=== PATIENT | male | born 1940 | race Caucasian/White ===

== ENCOUNTER 2017-05-14 01:35 | Emergency (ER) | payer MEDICARE, BC ==
[2017-05-14 01:36] VITALS: BP 115/66
--- NOTE | 2017-05-14 01:48 | PHYS DOC ---
Past History Past Medical History: A-Fib, CAD, CVA, High Cholesterol, Heart Disease, Hypertension Smoking: Cigarettes, Less than 1pk/day Adult General Chief Complaint Chief Complaint: right knee injury HPI HPI he is a pleasant 76-year-old male who was standing outside today while smoking when he lost his footing well defined chopping wood at 1 AM this morning when he slipped and skin is right knee. He is in independent living and he denies hitting his head, suffering any neck pain, hip pain, actual knee pain, numbness and tingling to his legs or back the nursing staff insisted he be evaluated for his knee injury. At this point patient has no complaints, no active bleeding, he only has a small abrasion to the lateral aspect of his right knee with no changes in range of motion or walking or popping. No other complaint of chest pain, abdominal pain or other issues. Patient actually did not want to come to the hospital has no complaints Review of Systems Review of Systems C chest: The chest pain Abdomen: Patient denies any abdominal pain vomiting or diarrhea Musculoskeletal: Denies back pain or joint pain [] Integument: Denies rash or skin lesions [] Neurologic: Denies headache, focal weakness or sensory changes [] All other systems were reviewed and found to be within normal limits, except as documented in this note. Physical Exam Physical Exam Vital signs on the chart noted to be hypertensive only. Constitutional: Well developed, well nourished, no acute distress, non-toxic appearance. [] HENT: Normocephalic, atraumatic, oropharynx moist, no oral lesions[] Neck: Normal range of motion, no tenderness, supple, no stridor. [] Cardiovascular: Regular irregular rhythm no murmurs gallops or rubs[] Lungs & Thorax: Bilateral breath sounds clear to auscultation [] Abdomen: Bowel sounds normal, soft, no tenderness, ] Skin: Warm, dry, no erythema, no rash. All abrasion measuring 2 cm x 1 segment on the lateral aspect of the right knee.[] Back: No tenderness, ] Extremities: No tenderness, no cyanosis, no clubbing, ROM intact, no edema. full range of motion of the right knee without locking or popping or obvious deformity. he has no pain[] Neurologic: Alert and oriented X 3, normal motor function, normal sensory function, no focal deficits noted. [] Psychologic: Affect normal, judgement normal, mood normal. [] EKG EKG [] Radiology/Procedures Radiology/Procedures [] Course & Med Decision Making Course & Med Decision Making Pertinent Labs and Imaging studies reviewed. (See chart for details) [] Dragon Disclaimer Dragon Disclaimer This electronic medical record was generated, in whole or in part, using a voice recognition dictation system. Departure Departure: Impression: Primary Impression: Fall from standing Additional Impression: Knee abrasion Disposition: HOME, SELF-CARE Condition: STABLE Patient Instructions: Abrasions, Fall Prevention and Home Safety Additional Instructions: discharge: I've spoken with the patient and/or caregivers. I've explained the patient's condition, diagnosis and treatment plan based on information available to me at this time. I've answered the patient's and/or caregivers questions and addressed any concerns. The patient and/or caregivers have a good understanding the patient's diagnosis, condition and treatment plan as can be expected at this point. Vital signs have been stabilized. The patient's condition is stable for discharge from the emergency department. The patient will pursue further outpatient evaluation with her primary care provider or other designated consulting physician as outlined in the discharge instructions. Patient and/or caregivers are agreeable to this plan of care and follow-up instructions have been explained in detail. The patient and/or caregivers have received these instructions in written format and expressed understanding of these discharge instructions. The patient and her caregivers are aware that if any significant change in condition or worsening of symptoms should prompt him to immediately return to this of the closest emergency department. If an emergent department is not readily available I would encourage him to call 911. Problem Qualifiers CECILIA PALMER MD May 14, 2017 01:48
== END 2017-05-14 01:59 | disposition home or self-care (01) ==
LOC: ER 01:35
DX: S80.211A Abrasion, right knee, initial encounter (principal); I11.9 Hypertensive heart disease without heart failure; E78.00 Pure hypercholesterolemia, unspecified; I25.10 Atherosclerotic heart disease of native coronary artery without angina pectoris; F17.210 Nicotine dependence, cigarettes, uncomplicated; I48.91 Unspecified atrial fibrillation; Z86.73 Personal history of transient ischemic attack (TIA), and cerebral infarction without residual deficits; W01.198A Fall on same level from slipping, tripping and stumbling with subsequent striking against other object, initial encounter; Y93.89 Activity, other specified; Y99.8 Other external cause status; Y92.89 Other specified places as the place of occurrence of the external cause
CPT/HCPCS: 99284

== ENCOUNTER → 2019-10-11 | Emergency (ER) | payer MEDICARE, BC ==
[~2019-10-11] VITALS: Ht 172.7 cm; Wt 71.8 kg
--- NOTE | 2019-10-11 20:00 | PHYS DOC ---
Past History Past Medical History: A-Fib, CAD, CVA, High Cholesterol, Heart Disease, Hypertension Past Surgical History: No Surgical History Smoking: Cigarettes, Less than 1pk/day Alcohol Use: None Drug Use: None General Adult EDM: Chief Complaint: NEURO SYMPTOMS/DEFICITS HPI: HPI: Patient is a 78 y/o male who presents for evaluation of possible strokelike symptoms. Patient currently lives at [facility]. Patient has a history of prior stroke and has a left arm chronic deficit. They report that about 1910 PM patient started leaning to the left and having some decreased mentation. Symptoms had begun to improve prior to arrival. Patient has significant generalized weakness. Patient's speech was clear on arrival and his GCS was 15. His prior stroke was 2 years ago. Patient is a DNR. Patient has had multiple similar episodes in the past. There is no reported injury, fall or trauma. Blood sugar is stable Review of Systems: Review of Systems: Constitutional: Denies fever or chills Eyes: Denies change in visual acuity HENT: Denies nasal congestion or sore throat Respiratory: Denies cough or shortness of breath Cardiovascular: Denies chest pain or edema GI: Denies abdominal pain, nausea, vomiting, bloody stools or diarrhea : Denies dysuria Musculoskeletal: Denies back pain or joint pain Integument: Denies rash Neurologic: Denies headache, has chronic left arm weakness or sensory changes Endocrine: Denies polyuria or polydipsia Lymphatic: Denies swollen glands Psychiatric: Denies depression or anxiety Heart Score: HEART Score for Chest Pain: HEART Score for Chest Pain Response (Comments) Value History Slighlty/Non-Suspicious 0 ECG Normal 0 Age > 65 2 Risk Factors 1 or 2 Risk Factors 1 Troponin < Normal Limit 0 Total 3 Risk Factors: Risk Factors: DM, Current or recent (<one month) smoker, HTN, HLP, family history of CAD, obesity. Risk Scores: Score 0 - 3: 2.5% MACE over next 6 weeks - Discharge Home Score 4 - 6: 20.3% MACE over next 6 weeks - Admit for Clinical Observation Score 7 - 10: 72.7% MACE over next 6 weeks - Early Invasive Strategies Allergies: Allergies: Allergies Coded Allergies Type Severity Reaction Last Updated Verified No Known Drug Allergies 05/14/17 No Physical Exam: PE: Constitutional: Well developed, well nourished, mild distress, non-toxic appearance. [] HENT: Normocephalic, atraumatic, bilateral external ears normal, oropharynx moist, no oral exudates, nose normal. [] Eyes: PERRL, EOMI, conjunctiva normal, no discharge. [] Neck: Normal range of motion, no tenderness, supple, no stridor. [] Cardiovascular:Heart rate regular rhythm, no murmur [] Lungs & Thorax: Bilateral breath sounds clear to auscultation [] Abdomen: Bowel sounds normal, soft, no tenderness, no masses, no pulsatile masses. [] Skin: Warm, dry, no erythema, no rash. [] Back: No tenderness, no CVA tenderness. [] Extremities: No tenderness, no cyanosis, no clubbing, ROM intact, no edema. [] Neurologic: Alert and oriented X person and place and month, not president, slight facial droop noted. Patient has obvious weakness left arm but does have good manager books slightly diminished when compared to right side. There is some drift present. Patient has some lack of movement in coordination with his left leg as well. [] Psychologic: Affect normal, judgement normal, mood normal. [] EKG: EKG: EKG, rate 72, slight leftward axis, otherwise essentially normal EKG, not STEMI read at 2206 Radiology/Procedures: Radiology/Procedures: Ct Head: Radiologist called and there is no acute findings. Patient has lacunar infarcts read at [address] [place] [address] IMAGING REPORT Signed PATIENT: LUPE WATTS ACCOUNT: [id number] : 1940 LOCATION: ER AGE: 78 SEX: M EXAM STATUS: REG ER ORD. PHYSICIAN: RODERICK DIETZ DO REASON: CODE STROKE PROCEDURE: CT CODE STROKE HEAD WO Exam: CT head INDICATION: Code stroke TECHNIQUE: Sequential axial images through the head were obtained without the administration of IV contrast. Comparisons: 10/21/2016 FINDINGS: No focal parenchymal lesion or hemorrhage is identified. There is no midline shift or sulcal effacement. Chronic bilateral lacunar infarcts are noted. Patchy hypodensity in the periventricular white matter representing small vessel ischemic change. No acute vascular territory infarction is identified. Mars-white distinction is preserved. The ventricular system is within normal limits without compression hydrocephalus. The basal cisterns are well maintained. The visualized portions of the paranasal sinuses and mastoid air cells are well-pneumatized. No acute fractures. IMPRESSION: Chronic ischemic change without acute intracranial abnormality. Exposure: One or more of the following in the visualized dose reduction techniques were utilized for this examination: 1. Automated exposure control 2. Adjustment of the MA and/or KV according to patient size Use of iterative of reconstructive technique FOR INTERNAL CODING PURPOSES Critical result: Findings discussed with RODERICK DIETZ at 10/11/2019 8:07 PM. RESULT CODE: (C) Electronically signed by: Keesha Peraza MD (10/11/2019 8:09 PM) [id number] DICTATED AND SIGNED BY: KEESHA PERAZA MD DATE: 10/11/192008 CC: RODERICK DIETZ DO; MARLENY HAMILTON DO ~ [place] [address] IMAGING REPORT Signed PATIENT: LUPE WATTS ACCOUNT: [id number] : 1940 LOCATION: ER AGE: 78 SEX: M EXAM STATUS: REG ER ORD. PHYSICIAN: RODERICK DIETZ DO REASON: short of air, confusion PROCEDURE: CHEST AP ONLY Exam: Chest one view INDICATION: Short of air, confusion TECHNIQUE: Frontal view of the chest Comparisons: None FINDINGS: The cardiomediastinal silhouette and pulmonary vessels are within normal limits. The lung and pleural spaces are clear. IMPRESSION: No acute cardiopulmonary process. Electronically signed by: Keesha Peraza MD (10/11/2019 9:30 PM) [id number] DICTATED AND SIGNED BY: KEESHA PERAZA MD DATE: 10/11/192129 CC: RODERICK DIETZ DO; MARLENY HAMILTON DO ~ Course & Med Decision Making: Course & Med Decision Making Pertinent Labs and Imaging studies reviewed. (See chart for details) 2109 CBC today shows a low hemoglobin of 10.5. BUN 29 creatinine 1.7 remainder of labs unremarkable. Troponin was added. Patient alert awake and baseline appropriate. Patient's daughters x2 are here. We discussed options and likely admission. Their preference is to be transferred to [facility]. No indication or need for TPA at this time. Patient back to his baseline status. Awaiting chest x-ray before disposition decision 2214 stable, remainder of ED work-up obtained. Patient medically stable. Blood pressure elevated 170s systolic. He does not have any changes in his neurological status. Will contact hospitalist at [facility] as requested to see about transfer. Dr. Theodore called right back and accepted patient. Dragon Disclaimer: Dragon Disclaimer: This electronic medical record was generated, in whole or in part, using a voice recognition dictation system. Departure Departure: Impression: Primary Impression: TIA (transient ischemic attack) Additional Impressions: Elevated blood pressure reading Left arm weakness History of CVA (cerebrovascular accident) Disposition: 05 TRANSFER OTHER ([facility] under care of Dr. Theodore) Condition: STABLE Referrals: MARLENY HAMILTON DO (PCP) NIH Stroke Scale: NIH Stroke Scale Response (Comments) Value Level of Consciousness: 0 Alert/Responsive 0 LOC Questions: 0 Answers both correctly 0 LOC Commands: 0 Performs both tasks 0 Best Gaze: 0 Normal 0 Visual: 0 No visual loss 0 Facial Palsy: 1 Minor paralysis 1 Motor - Left Arm 1 Drifts, but can hold 1 Motor - Right Arm 0 No drift 0 Motor - Left Leg 1 Drift but can hold 1 Motor: Right Leg 0 No drift 0 Limb Ataxia: 0 Absent 0 Sensory: 0 No loss 0 Best Language: 0 Normal 0 Dysathria: 0 Normal 0 Extinction and Inattention: 0 Normal 0 Total 3 ROEDRICK DIETZ DO Oct 11, 2019 20:00
--- NOTE | 2019-10-11 20:13 | RAD ---
Exam: CT head INDICATION: Code stroke TECHNIQUE: Sequential axial images through the head were obtained without the administration of IV contrast. Comparisons: 10/21/2016 FINDINGS: No focal parenchymal lesion or hemorrhage is identified. There is no midline shift or sulcal effacement. Chronic bilateral lacunar infarcts are noted. Patchy hypodensity in the periventricular white matter representing small vessel ischemic change. No acute vascular territory infarction is identified. Mars-white distinction is preserved. The ventricular system is within normal limits without compression hydrocephalus. The basal cisterns are well maintained. The visualized portions of the paranasal sinuses and mastoid air cells are well-pneumatized. No acute fractures. IMPRESSION: Chronic ischemic change without acute intracranial abnormality. Exposure: One or more of the following in the visualized dose reduction techniques were utilized for this examination: 1. Automated exposure control 2. Adjustment of the MA and/or KV according to patient size Use of iterative of reconstructive technique FOR INTERNAL CODING PURPOSES Critical result: Findings discussed with RODERICK DIETZ at 10/11/2019 8:07 PM. RESULT CODE: (C) Electronically signed by: Keesha Betts MD (10/11/2019 8:09 PM) [id number]
[2019-10-11 20:51] LABS: BASO % 0 % (0-3); EOS # 0.2 x10^3/uL (0.0-0.7); EOS % 2 % (0-3); HEMATOCRIT 33.2 % (39.0-53.0); HEMOGLOBIN 10.5 g/dL (13.0-17.5); LYMPH # 0.6 x10^3/uL (1.0-4.8); LYMPH % 5 % (24-48); MEAN CORPUSCULAR HEMOGLOBIN 26 pg (25-35); MEAN CORPUSCULAR HGB CONC 32 g/dL (31-37); MEAN CORPUSCULAR VOLUME 83 fL (79-100); MONO # 1.2 x10^3/uL (0.0-1.1); MONO % 11 % (0-9); NEUT # 8.8 x10^3uL (1.8-7.7); NEUT % 81 % (31-73); PLATELET COUNT 184 x10^3/uL (140-400); RED CELL DISTRIBUTION WIDTH 17.3 % (11.5-14.5); WHITE BLOOD COUNT 10.8 x10^3/uL (4.0-11.0)
[2019-10-11 20:55] LABS: CREATININE 1.7 mg/dL (0.7-1.3); GFR 39.1; POTASSIUM 3.9 mmol/L (3.5-5.1)
[2019-10-11 21:01] LABS: ALBUMIN 3.3 g/dL (3.4-5.0); ALBUMIN/GLOBULIN RATIO 0.9 (1.0-1.7); TOTAL BILIRUBIN 0.2 mg/dL (0.2-1.0); TOTAL PROTEIN 7.1 g/dL (6.4-8.2)
--- NOTE | 2019-10-11 21:33 | RAD ---
Exam: Chest one view INDICATION: Short of air, confusion TECHNIQUE: Frontal view of the chest Comparisons: None FINDINGS: The cardiomediastinal silhouette and pulmonary vessels are within normal limits. The lung and pleural spaces are clear. IMPRESSION: No acute cardiopulmonary process. Electronically signed by: Keesha Betts MD (10/11/2019 9:30 PM) [id number]
--- NOTE | 2019-10-11 22:54 | EKG ---
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
[2019-10-12 00:25] VITALS: BP 135/72
== END | disposition short-term general hospital (02) ==
LOC: ER 19:50
DX: G45.9 Transient cerebral ischemic attack, unspecified (principal); R03.0 Elevated blood-pressure reading, without diagnosis of hypertension; I48.91 Unspecified atrial fibrillation; I25.10 Atherosclerotic heart disease of native coronary artery without angina pectoris; E78.00 Pure hypercholesterolemia, unspecified; I11.0 Hypertensive heart disease with heart failure; F17.210 Nicotine dependence, cigarettes, uncomplicated; Z86.73 Personal history of transient ischemic attack (TIA), and cerebral infarction without residual deficits
CPT/HCPCS: 36415; 70450; 71045; 80053; 82947; 84484; 85025; 85610; 93005; 99285

== ENCOUNTER 2020-01-26 18:38 | Emergency (ER) | payer MEDICARE, BC ==
[~2020-01-26] VITALS: Ht 172.7 cm; Wt 71.8 kg
--- NOTE | 2020-01-26 19:16 | PHYS DOC ---
Past History Past Medical History: A-Fib, CAD, CVA, High Cholesterol, Heart Disease, Hypertension Past Surgical History: No Surgical History Smoking: Cigarettes, Less than 1pk/day Alcohol Use: None Drug Use: None Adult General Chief Complaint Chief Complaint: WEAKNESS/GENERALIZED HPI HPI Patient is a 79-year-old male who presents from [facility] for fatigue. EMS was called by [facility] staff due to concern that patient was more fatigued than usual. Patient admits to fatigue; however, denied any other symptoms. EMS ultimately transported hemodynamically stable patient to our ER for further evaluation. On arrival, patient admits fatigue but denies any other symptoms. Denies any recent febrile illness, URI, COVID-19 contact, chest pain, shortness of breath, abdominal pain, UTI-like symptoms, or recent blood loss. Review of Systems Review of Systems Fourteen body systems of review of systems have been reviewed. See HPI for pertinent positives and negative responses, other trejo all other systems are n egative, non-pertinent or non-contributory Allergies Allergies Allergies Coded Allergies Type Severity Reaction Last Updated Verified No Known Drug Allergies 05/14/17 No Physical Exam Physical Exam Constitutional: Well developed, well nourished, no acute distress, non-toxic appearance. No signs of trauma HENT: Normocephalic, atraumatic, bilateral external ears normal, oropharynx moist, no oral exudates, nose normal. Eyes: PERRLA, EOMI, conjunctiva normal, no discharge. Neck: Normal range of motion, no tenderness, supple, no stridor. Cardiovascular: Heart rate regular, sinus rhythm, no murmurs rubs or gallops Lungs & Thorax: Bilateral breath sounds clear to auscultation Abdomen: Bowel sounds normal, soft, no tenderness, no masses, no pulsatile masses. Nonsurgical abdomen, no peritoneal signs Skin: Warm, dry, no erythema, no rash. Back: No tenderness, no CVA tenderness. Extremities: No tenderness, no cyanosis, no clubbing, ROM intact, no edema. Neurologic: Alert and oriented X 3, normal motor & sensory function, no focal deficits noted. Cranial nerves II through XII intact Psychologic: Flat affect, judgement normal, depressed mood Current Patient Data Vital Signs Vital Signs Date Time Temp Pulse Resp B/P (MAP) Pulse Ox O2 Delivery O2 Flow Rate FiO2 8/13/20 18:52 98.4 72 18 138/63 (88) 97 Room Air Lab Results Laboratory Tests Test 01/26/20 19:04 01/26/20 21:10 White Blood Count 6.0 x10^3/uL Red Blood Count 3.74 x10^6/uL Hemoglobin 9.8 g/dL Hematocrit 31.1 % Mean Corpuscular Volume 83 fL Mean Corpuscular Hemoglobin 26 pg Mean Corpuscular Hemoglobin Concent 31 g/dL Red Cell Distribution Width 16.1 % Platelet Count 181 x10^3/uL Neutrophils (%) (Auto) 76 % Lymphocytes (%) (Auto) 7 % Monocytes (%) (Auto) 13 % Eosinophils (%) (Auto) 4 % Basophils (%) (Auto) 1 % Neutrophils # (Auto) 4.6 x10^3uL Lymphocytes # (Auto) 0.4 x10^3/uL Monocytes # (Auto) 0.8 x10^3/uL Eosinophils # (Auto) 0.2 x10^3/uL Basophils # (Auto) 0.0 x10^3/uL Sodium Level 143 mmol/L Potassium Level 4.2 mmol/L Chloride Level 104 mmol/L Carbon Dioxide Level 27 mmol/L Anion Gap 12 Blood Urea Nitrogen 34 mg/dL Creatinine 2.0 mg/dL Estimated GFR (Cockcroft-Gault) 32.3 BUN/Creatinine Ratio 17 Glucose Level 120 mg/dL Calcium Level 9.0 mg/dL Magnesium Level 2.2 mg/dL Total Bilirubin 0.2 mg/dL Aspartate Amino Transf (AST/SGOT) 13 U/L Alanine Aminotransferase (ALT/SGPT) 12 U/L Alkaline Phosphatase 87 U/L Creatine Kinase 30 U/L Troponin I Quantitative < 0.017 ng/mL [id number] Natriuretic Peptide 357 pg/mL Total Protein 6.9 g/dL Albumin 3.5 g/dL Albumin/Globulin Ratio 1.0 Urine Collection Type Unknown Urine Color Yellow Urine Clarity Clear Urine pH 5.5 Urine Specific [place] 1.020 Urine Protein 30 mg/dl Urine Glucose (UA) Neg mg/dL Urine Ketones (Stick) Neg mg/dL Urine Blood Neg Urine Nitrite Neg Urine Bilirubin Neg Urine Urobilinogen Dipstick 0.2 mg/dL Urine Leukocyte Esterase Neg Urine RBC Occ /HPF Urine WBC 1-4 /HPF Urine Squamous Epithelial Cells Few /LPF Urine Bacteria 0 /HPF Urine Hyaline Casts Occ /HPF Urine Mucus Slight /LPF Current Medications Medications (Trade) Dose Ordered Sig/Andrea Route PRN Reason Start Time Stop Time Status Last Admin Dose Admin Sodium Chloride 500 ml @ 0 mls/hr 1X ONCE IV 01/26/20 20:15 01/26/20 20:16 DC 01/26/20 20:19 Sodium Chloride 500 ml @ As Directed STK-MED ONCE .ROUTE 01/26/20 20:16 01/26/20 20:16 DC EKG EKG EKG ordered and interpreted by myself at 1912 hrs. as normal sinus rhythm at 71 bpm, unremarkable intervals, no axis deviation, no ischemic findings, no STEMI Radiology/Procedures Radiology/Procedures PROCEDURE: PORTABLE CHEST 1V EXAM: AP View of the chest DATE: 01/26/2020 6:57 PM INDICATION: Weakness COMPARISON: No Prior FINDINGS: The heart is not enlarged. Mediastinal and hilar contours are normal. No focal parenchymal airspace opacity. Background of emphysematous change. No pleural effusion or pneumothorax. IMPRESSION: 1. No radiographic evidence for acute cardiopulmonary process. Electronically signed by: Kannan Clemente MD (01/26/2020 7:29 PM) [facility] Course & Med Decision Making Course & Med Decision Making Patient seen on immediate EMS arrival Airway patent, breathing unlabored, vitals obtained and grossly unremarkable. IV access obtained Comprehensive history and physical exam obtained, pertinent laboratory and imaging studies ordered thereafter Patient gently fluid resuscitated with IV saline Patient remained asymptomatic throughout entirety of the ED stay, he was reassessed several times by various members of our healthcare team ED course discussed in full with patient. Patient remained fatigued but without any obvious or emergent causes. Discussed potential of normocytic anemia playing into patient's fatigue. Also discussed his depression is a possibility. Patient unsure if he has had vitamin D levels checked in the outpatient setting Ultimately, discussed little indication for further diagnostic work-up or admission to the hospital. Patient was agreeable to discharge back home in stable condition with close outpatient follow-up Strict return precautions were discussed at length with good understanding, all questions and concerns addressed Patient was discharged home with his daughter who would be transporting patient back to [facility] Dragmauro Disclaimer Dragon Disclaimer This electronic medical record was generated, in whole or in part, using a voice recognition dictation system. Departure Departure: Impression: Primary Impression: Fatigue Additional Impressions: Normocytic anemia Chronic renal disease Disposition: HOME/RESIDENCE PRIOR TO ADM Condition: STABLE Referrals: MARLENY HAMILTON DO (PCP) Patient Instructions: Anemia, Nonspecific-Brief, Fatigue Additional Instructions: As discussed prior to your ER departure, there is no emergent causes for your presenting symptoms today It appears you have a chronic normocytic anemia and chronic renal disease I advised you to follow-up with your primary care physician to discuss further work-up of these issues in outpatient setting as they might be contributory to your fatigue I also recommend to her PCP investigate other underlying reasons for your fatigue such as but not limited to vitamin D deficiency and depression Thank you for suggesting [facility] for your care, please do not hesitate to call if you have any further questions or concerns regarding your care today Justification of Admission: Justification of Admission: Justification of Admission Dx: N/A Problem Qualifiers MAURO RIZZO DO Jan 26, 2020 19:16
[2020-01-26 19:26] LABS: BASO % 1 % (0-3); EOS # 0.2 x10^3/uL (0.0-0.7); EOS % 4 % (0-3); HEMATOCRIT 31.1 % (39.0-53.0); HEMOGLOBIN 9.8 g/dL (13.0-17.5); LYMPH # 0.4 x10^3/uL (1.0-4.8); LYMPH % 7 % (24-48); MEAN CORPUSCULAR HEMOGLOBIN 26 pg (25-35); MEAN CORPUSCULAR HGB CONC 31 g/dL (31-37); MEAN CORPUSCULAR VOLUME 83 fL (79-100); MONO # 0.8 x10^3/uL (0.0-1.1); MONO % 13 % (0-9); NEUT # 4.6 x10^3uL (1.8-7.7); NEUT % 76 % (31-73); PLATELET COUNT 181 x10^3/uL (140-400); RED BLOOD COUNT 3.74 x10^6/uL (4.30-5.70); RED CELL DISTRIBUTION WIDTH 16.1 % (11.5-14.5)
--- NOTE | 2020-01-26 19:31 | RAD ---
EXAM: AP View of the chest DATE: 01/26/2020 6:57 PM INDICATION: Weakness COMPARISON: No Prior FINDINGS: The heart is not enlarged. Mediastinal and hilar contours are normal. No focal parenchymal airspace opacity. Background of emphysematous change. No pleural effusion or pneumothorax. IMPRESSION: 1. No radiographic evidence for acute cardiopulmonary process. Electronically signed by: Kannan Clemente MD (01/26/2020 7:29 PM) [facility]AN
[2020-01-26 19:42] LABS: MAGNESIUM 2.2 mg/dL (1.8-2.4)
[2020-01-26 19:50] VITALS: BP 157/84
[2020-01-26 19:51] LABS: GFR 32.3; POTASSIUM 4.2 mmol/L (3.5-5.1)
[2020-01-26 19:56] LABS: ALBUMIN 3.5 g/dL (3.4-5.0); TOTAL BILIRUBIN 0.2 mg/dL (0.2-1.0); TOTAL PROTEIN 6.9 g/dL (6.4-8.2)
[2020-01-26] MEDS ORDERED: IV NORMAL SALINE 500ML 500 ML IV ONE (20:15)
[2020-01-26] MEDS ORDERED: IV NORMAL SALINE 500ML 500 ML ONE (20:16)
[2020-01-26 21:31] LABS: BACTERIA,URINE 0 /HPF (0-FEW); BILIRUBIN,URINE NEG (NEG); CLARITY,URINE CLEAR; COLOR,URINE YELLOW; GLUCOSE,URINE NEG (NEG); HYALINE CASTS, URINE OCC /HPF; NITRITE,URINE NEG (NEG); RBC,URINE OCC /HPF (0-2); SQUAMOUS EPITHELIAL CELL,UR FEW /LPF; UROBILINOGEN,URINE 0.2 mg/dL (0.2 mg/dL)
--- NOTE | 2020-01-27 06:28 | EKG ---
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
== END 2020-01-26 22:42 | disposition home or self-care (01) ==
LOC: ER 18:38
DX: R53.83 Other fatigue (principal); D64.9 Anemia, unspecified; I13.10 Hypertensive heart and chronic kidney disease without heart failure, with stage 1 through stage 4 chronic kidney disease, or unspecified chronic kidney disease; N18.9 Chronic kidney disease, unspecified; I48.91 Unspecified atrial fibrillation; I25.10 Atherosclerotic heart disease of native coronary artery without angina pectoris; E78.00 Pure hypercholesterolemia, unspecified; F17.210 Nicotine dependence, cigarettes, uncomplicated; Z86.73 Personal history of transient ischemic attack (TIA), and cerebral infarction without residual deficits
CPT/HCPCS: 36415; 71045; 80053; 81001; 82550; 83735; 83880; 84484; 85025; 93005; 96360; 99285; J7040

== ENCOUNTER 2020-03-11 09:18 | Emergency (ER) | payer MEDICARE, BC ==
[~2020-03-11] VITALS: Ht 172.7 cm; Wt 71.8 kg
--- NOTE | 2020-03-11 09:34 | PHYS DOC ---
Past History Past Medical History: A-Fib, CAD, CVA, High Cholesterol, Heart Disease, Hypertension Past Surgical History: No Surgical History Smoking: Cigarettes, Less than 1pk/day Alcohol Use: None Drug Use: None General Adult EDM: Chief Complaint: FATIGUE HPI: HPI: Patient is a 79-year-old male who arrives via EMS with a chief complaint of generalized weakness and confusion and fatigue for last 2 days. Patient lives at assisted living he denies any pain at this time because of the assisted living feels that he is at low oxygen levels and generalized weakness and fatigue over last couple days. History, physical, review of systems are limited due to altered mental status Review of Systems: Review of Systems: Constitutional: Denies fever or chills Eyes: Denies change in visual acuity HENT: Denies nasal congestion or sore throat Respiratory: Denies shortness of breath Cardiovascular: Denies chest pain or edema GI: Denies abdominal pain, nausea, vomiting, bloody stools or diarrhea : Denies dysuria Musculoskeletal: Denies back pain or joint pain Integument: Denies rash Neurologic: Denies headache, focal weakness or sensory changes Endocrine: Denies polyuria or polydipsia Lymphatic: Denies swollen glands Psychiatric: Denies depression or anxiety Heart Score: Risk Factors: Risk Factors: DM, Current or recent (<one month) smoker, HTN, HLP, family history of CAD, obesity. Risk Scores: Score 0 - 3: 2.5% MACE over next 6 weeks - Discharge Home Score 4 - 6: 20.3% MACE over next 6 weeks - Admit for Clinical Observation Score 7 - 10: 72.7% MACE over next 6 weeks - Early Invasive Strategies Allergies: Allergies: Allergies Coded Allergies Type Severity Reaction Last Updated Verified No Known Drug Allergies 05/14/17 No Physical Exam: PE: Constitutional: Well developed, well nourished, no acute distress, non-toxic appearance. [] HENT: Normocephalic, atraumatic, bilateral external ears normal, no trismus, nose normal. [] Eyes: PERRLA, EOMI, conjunctiva normal, no discharge. [] Neck: Normal range of motion, no tenderness, supple, no stridor. [] Cardiovascular:Heart rate regular rhythm, peripheral pulses are intact, cap refill is brisk Lungs & Thorax: Bilateral breath sounds clear, no respiratory distress Abdomen: Bowel sounds normal, soft, no tenderness, no masses, no pulsatile masses. [] Skin: Warm, dry, no erythema, no rash. [] Back: No tenderness, no CVA tenderness. [] Extremities: No tenderness, no cyanosis, no clubbing, ROM intact, no edema. [] Neurologic: Alert but confused to place and time, generalized weakness, no lateralizing deficits Psychologic: Affect normal, judgement normal, mood normal. [] Current Patient Data: Labs: Laboratory Tests Test 03/11/20 09:46 03/11/20 09:49 White Blood Count 13.1 x10^3/uL Red Blood Count 3.37 x10^6/uL Hemoglobin 8.4 g/dL Hematocrit 27.5 % Mean Corpuscular Volume 82 fL Mean Corpuscular Hemoglobin 25 pg Mean Corpuscular Hemoglobin Concent 31 g/dL Red Cell Distribution Width 16.6 % Platelet Count 196 x10^3/uL Neutrophils (%) (Auto) 85 % Lymphocytes (%) (Auto) 4 % Monocytes (%) (Auto) 11 % Eosinophils (%) (Auto) 0 % Basophils (%) (Auto) 0 % Neutrophils # (Auto) 11.1 x10^3uL Lymphocytes # (Auto) 0.5 x10^3/uL Monocytes # (Auto) 1.4 x10^3/uL Eosinophils # (Auto) 0.1 x10^3/uL Basophils # (Auto) 0.0 x10^3/uL Sodium Level 144 mmol/L Potassium Level 4.3 mmol/L Chloride Level 105 mmol/L Carbon Dioxide Level 29 mmol/L Anion Gap 10 Blood Urea Nitrogen 44 mg/dL Creatinine 2.2 mg/dL Estimated GFR (Cockcroft-Gault) 28.9 BUN/Creatinine Ratio 20 Glucose Level 111 mg/dL Lactic Acid Level 1.7 mmol/L Calcium Level 9.3 mg/dL Total Bilirubin 0.4 mg/dL Aspartate Amino Transf (AST/SGOT) 16 U/L Alanine Aminotransferase (ALT/SGPT) 16 U/L Alkaline Phosphatase 79 U/L Ammonia < 10 mcmol/L Troponin I Quantitative 1.622 ng/mL WL-Fnf-U-Type Natriuretic Peptide 1105 pg/mL Total Protein 7.0 g/dL Albumin 3.0 g/dL Albumin/Globulin Ratio 0.8 Urine Collection Type U cath Urine Color Yellow Urine Clarity Hazy Urine pH 7.0 Urine Specific [place] 1.020 Urine Protein 30 mg/dl Urine Glucose (UA) Neg mg/dL Urine Ketones (Stick) Neg mg/dL Urine Blood Neg Urine Nitrite Neg Urine Bilirubin Neg Urine Urobilinogen Dipstick 0.2 mg/dL Urine Leukocyte Esterase Neg Urine RBC 6-10 /HPF Urine WBC Occ /HPF Urine Squamous Epithelial Cells Occ /LPF Urine Bacteria 0 /HPF Urine Hyaline Casts Occ /HPF Urine Mucus Slight /LPF Current Medications Medications (Trade) Dose Ordered Sig/Andrea Route PRN Reason Start Time Stop Time Status Last Admin Dose Admin Sodium Chloride 1,000 ml @ 1,000 mls/hr 1X ONCE IV 03/11/20 10:00 03/11/20 10:59 DC 03/11/20 10:07 Aspirin (Aspirin Chewable) 324 mg 1X ONCE PO 03/11/20 11:00 03/11/20 11:04 DC 03/11/20 10:57 EKG: EKG: [] EKG interpreted by me, normal sinus rhythm with rate 82 normal axis normal intervals nonspecific ST changes Radiology/Procedures: Radiology/Procedures: [][place] [address] IMAGING REPORT Signed PATIENT: LUPE WATTS ACCOUNT: [id number] : 1940 LOCATION: ER AGE: 79 SEX: M EXAM STATUS: REG ER ORD. PHYSICIAN: ISABELLA ARRIAGA MD REASON: ams PROCEDURE: PORTABLE CHEST 1V AP portable chest 03/11/2020. Reason for exam: Mental status change. Comparison is made with a study of 01/26/2020. Depth of inspiration is shallower. This may account for some increased basilar markings. There is no consolidation or pleural fluid. There is suggestion of a vague nodular opacity in the upper right lung. This had a similar appearance previously, although seems less evident on the older film of 10/11/2019. IMPRESSION: Mild by basilar atelectasis. Possible right lung nodule. Electronically signed by: Elaina Aguirre Jr., MD (03/11/2020 10:17 AM) [facility] DICTATED AND SIGNED BY: ELAINA AGUIRRE Jr, MD DATE: 03/11/20 1017 CC: ISABELLA ARRIAGA MD; MARLENY HAMILTON DO ~ Course & Med Decision Making: Course & Med Decision Making Pertinent Labs and Imaging studies reviewed. (See chart for details) [] 79-year-old male presents with weakness over the last 2 days. Patient has elevated troponin and has been weak over the last 2 days I feel like he may have had a N STEMI on Thursday. Patient also has a renal insufficiency is given some IV fluids. Patient will be admitted to [facility]. Discussed the case with who will accept. Dragon Disclaimer: Dragon Disclaimer: This electronic medical record was generated, in whole or in part, using a voice recognition dictation system. Departure Departure: Impression: Primary Impression: NSTEMI (non-ST elevated myocardial infarction) Additional Impressions: Generalized weakness COSMO (acute kidney injury) Disposition: 01 HOME/RESIDENCE PRIOR TO ADM Condition: GUARDED Referrals: MARLENY HAMILTON DO (PCP) Justification of Admission: Justification of Admission: Justification of Admission Dx: N/A ISABELLA ARRIAGA MD Mar 11, 2020 09:34
[2020-03-11] MEDS ORDERED: IV NORMAL SALINE 1,000ML 1,000 ML IV ONE (10:00)
[2020-03-11 10:18] LABS: BASO % 0 % (0-3); EOS # 0.1 x10^3/uL (0.0-0.7); EOS % 0 % (0-3); HEMATOCRIT 27.5 % (39.0-53.0); HEMOGLOBIN 8.4 g/dL (13.0-17.5); LYMPH # 0.5 x10^3/uL (1.0-4.8); LYMPH % 4 % (24-48); MEAN CORPUSCULAR HEMOGLOBIN 25 pg (25-35); MEAN CORPUSCULAR HGB CONC 31 g/dL (31-37); MEAN CORPUSCULAR VOLUME 82 fL (79-100); MONO # 1.4 x10^3/uL (0.0-1.1); MONO % 11 % (0-9); NEUT # 11.1 x10^3uL (1.8-7.7); NEUT % 85 % (31-73); PLATELET COUNT 196 x10^3/uL (140-400); RED BLOOD COUNT 3.37 x10^6/uL (4.30-5.70); RED CELL DISTRIBUTION WIDTH 16.6 % (11.5-14.5); WHITE BLOOD COUNT 13.1 x10^3/uL (4.0-11.0)
--- NOTE | 2020-03-11 10:20 | RAD ---
AP portable chest 03/11/2020. Reason for exam: Mental status change. Comparison is made with a study of 01/26/2020. Depth of inspiration is shallower. This may account for some increased basilar markings. There is no consolidation or pleural fluid. There is suggestion of a vague nodular opacity in the upper right lung. This had a similar appearance previously, although seems less evident on the older film of 10/11/2019. IMPRESSION: Mild by basilar atelectasis. Possible right lung nodule. Electronically signed by: Ra Aguirre Jr., MD (03/11/2020 10:17 AM) [facility]
--- NOTE | 2020-03-11 10:23 | EKG ---
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
[2020-03-11 10:35] LABS: CALCIUM 9.3 mg/dL (8.5-10.1); CREATININE 2.2 mg/dL (0.7-1.3); GFR 28.9; POTASSIUM 4.3 mmol/L (3.5-5.1)
[2020-03-11 10:51] LABS: ALBUMIN/GLOBULIN RATIO 0.8 (1.0-1.7); TOTAL BILIRUBIN 0.4 mg/dL (0.2-1.0)
[2020-03-11] MEDS ORDERED: ASPIRIN CHEWABLE 81 MG TABLET. PO ONE (11:00)
[2020-03-11 11:19] LABS: BACTERIA,URINE 0 /HPF (0-FEW); BILIRUBIN,URINE NEG (NEG); CLARITY,URINE HAZY; COLOR,URINE YELLOW; GLUCOSE,URINE NEG (NEG); HYALINE CASTS, URINE OCC /HPF; NITRITE,URINE NEG (NEG); SQUAMOUS EPITHELIAL CELL,UR OCC /LPF; UROBILINOGEN,URINE 0.2 mg/dL (0.2 mg/dL); WBC,URINE OCC /HPF (0-4)
[2020-03-11 11:54] VITALS: BP 137/78
== END 2020-03-11 12:31 | disposition short-term general hospital (02) ==
LOC: ER 09:18
DX: I21.4 Non-ST elevation (NSTEMI) myocardial infarction (principal); N17.9 Acute kidney failure, unspecified; I48.91 Unspecified atrial fibrillation; I11.9 Hypertensive heart disease without heart failure; E78.00 Pure hypercholesterolemia, unspecified; I25.10 Atherosclerotic heart disease of native coronary artery without angina pectoris; F17.210 Nicotine dependence, cigarettes, uncomplicated; Z86.73 Personal history of transient ischemic attack (TIA), and cerebral infarction without residual deficits
CPT/HCPCS: 36415; 71045; 80053; 81001; 82140; 83605; 83880; 84443; 84484; 85025; 85610; 85730; 87040; 93005; 96360; 99285; J7030

== ENCOUNTER 2020-04-26 04:19 | Emergency (ER) | payer MEDICARE, BC ==
[~2020-04-26] VITALS: Ht 180.3 cm; Wt 61.4 kg
[2020-04-26 04:58] LABS: BASO % 0 % (0-3); EOS # 0.1 x10^3/uL (0.0-0.7); EOS % 1 % (0-3); HEMATOCRIT 25.7 % (39.0-53.0); HEMOGLOBIN 8.2 g/dL (13.0-17.5); LYMPH # 0.4 x10^3/uL (1.0-4.8); LYMPH % 4 % (24-48); MEAN CORPUSCULAR HEMOGLOBIN 29 pg (25-35); MEAN CORPUSCULAR HGB CONC 32 g/dL (31-37); MEAN CORPUSCULAR VOLUME 91 fL (79-100); MONO # 1.2 x10^3/uL (0.0-1.1); MONO % 12 % (0-9); NEUT # 7.7 x10^3uL (1.8-7.7); NEUT % 83 % (31-73); PLATELET COUNT 173 x10^3/uL (140-400); RED BLOOD COUNT 2.84 x10^6/uL (4.30-5.70); RED CELL DISTRIBUTION WIDTH 21.4 % (11.5-14.5); WHITE BLOOD COUNT 9.3 x10^3/uL (4.0-11.0)
[2020-04-26 05:13] LABS: ANISOCYTOSIS SLIGHT; MICROCYTOSIS SLIGHT; PLT ESTIMATE ADEQUATE (ADEQUATE)
[2020-04-26 05:15] LABS: CALCIUM 8.7 mg/dL (8.5-10.1); CREATININE 1.9 mg/dL (0.7-1.3); GFR 34.3; POTASSIUM 4.3 mmol/L (3.5-5.1)
[2020-04-26 05:20] LABS: ALBUMIN 2.7 g/dL (3.4-5.0); ALBUMIN/GLOBULIN RATIO 0.8 (1.0-1.7); TOTAL BILIRUBIN 0.4 mg/dL (0.2-1.0); TOTAL PROTEIN 6.3 g/dL (6.4-8.2)
--- NOTE | 2020-04-26 05:28 | PHYS DOC ---
Past History Past Medical History: A-Fib, CAD, CVA, High Cholesterol, Heart Disease, Hypertension Past Surgical History: No Surgical History Smoking: Cigarettes, Less than 1pk/day Alcohol Use: None Drug Use: None Adult General Chief Complaint Chief Complaint: FATIGUE HPI HPI Patient is an 79-year-old male who presents to the emergency room with generalized weakness that started this morning. Patient states that he tried to get up at his nursing facility and was unable to walk which is abnormal for him. He also had some shortness of breath with this. He has a chronic cough that is unchanged. He has not had any new fevers. Patient is a poor historian and history is limited. Patient did not fall this morning but did have a fall couple days ago. He denies any current chest pain. Review of Systems Review of Systems Complete ROS is negative unless otherwise documented in HPI Allergies Allergies Allergies Coded Allergies Type Severity Reaction Last Updated Verified No Known Drug Allergies 04/26/20 No Physical Exam Physical Exam General: Awake, alert, NAD. Well Nourished, well hydrated. Cooperative HEENT: Atraumatic, EOMI, PERRL, airway patent, moist oral mucosa Neck: Supple, trachea midline Respiratory: CTA bilaterally, normal effort, no wheezing/crackles CV: RRR, no murmur, cap refill <2 GI: Soft, nondistended, nontender, no masses MSK: No obvious deformities Skin: Warm, dry, intact Neuro: A&O x3, speech NL, sensory and motor grossly intact, no focal deficits Psych: Normal affect, normal mood, not suicidal or homicidal Current Patient Data Lab Results Laboratory Tests Test 04/26/20 04:31 White Blood Count 9.3 x10^3/uL (4.0-11.0) Red Blood Count 2.84 x10^6/uL (4.30-5.70) L Hemoglobin 8.2 g/dL (13.0-17.5) L Hematocrit 25.7 % (39.0-53.0) L Mean Corpuscular Volume 91 fL (79-100) Mean Corpuscular Hemoglobin 29 pg (25-35) Mean Corpuscular Hemoglobin Concent 32 g/dL (31-37) Red Cell Distribution Width 21.4 % (11.5-14.5) H Platelet Count 173 x10^3/uL (140-400) Neutrophils (%) (Auto) 83 % (31-73) H Lymphocytes (%) (Auto) 4 % (24-48) L Monocytes (%) (Auto) 12 % (0-9) H Eosinophils (%) (Auto) 1 % (0-3) Basophils (%) (Auto) 0 % (0-3) Neutrophils # (Auto) 7.7 x10^3uL (1.8-7.7) Lymphocytes # (Auto) 0.4 x10^3/uL (1.0-4.8) L Monocytes # (Auto) 1.2 x10^3/uL (0.0-1.1) H Eosinophils # (Auto) 0.1 x10^3/uL (0.0-0.7) Basophils # (Auto) 0.0 x10^3/uL (0.0-0.2) Platelet Estimate Adequate (ADEQUATE) Anisocytosis Slight Microcytosis Slight EKG EKG [] Radiology/Procedures Radiology/Procedures [] Heart Score Risk Factors: Risk Factors: DM, Current or recent (<one month) smoker, HTN, HLP, family history of CAD, obesity. Risk Scores: Risk Factors: DM, Current or recent (<one month) smoker, HTN, HLP, family history of CAD, obesity. Course & Med Decision Making Course & Med Decision Making Pertinent Labs and Imaging studies reviewed. (See chart for details) Patient is an 79-year-old male who presents to the emergency room with generalized weakness and difficulty walking. Upon arrival to the emergency room patient is overall hemodynamically stable but does appear to be generalized weak. She does not have any focal deficits. Differential diagnosis includes infection, cardiac pathology, electrolyte abnormality, dehydration. Lab work was ordered including a CBC, CMP, troponin, EKG, chest x-ray. Patient is mildly dehydrated and has an elevated troponin at this time. EKG does not show signs of STEMI. [facility] be [facility] to [facility] for cardiac evaluation. Dragon Disclaimer Dragon Disclaimer This electronic medical record was generated, in whole or in part, using a voice recognition dictation system. Departure Departure: Impression: Primary Impression: Weakness Additional Impression: Elevated troponin Disposition: 02 DC/TRF OTHER SHORT TERM HOS Condition: STABLE Referrals: MARLENY HAMILTON DO (PCP) Problem Qualifiers TRUDI JACINTO MD Apr 26, 2020 05:28
--- NOTE | 2020-04-26 05:38 | EKG ---
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
[2020-04-26 05:40] LABS: C REACTIVE PROTEIN 159.7 mg/L (0-3.3)
--- NOTE | 2020-04-26 05:41 | RAD ---
Study: CR CHEST AP ONLY Indication: Weakness. Comparison: 03/11/2020 Findings: Left chest wall Loop recorder. Unchanged cardiomediastinal silhouette and stan. Increased lung markings with a basilar predominance again noted. More pronounced hazy attenuation at the infrahilar right lower lung. No layering effusion or pneumothorax. Impression: More noticeable hazy attenuation at the infrahilar right lower lung. Atelectasis or an infectious infiltrate are both possible. Otherwise no significant interval change. Electronically signed by: JACKSON HERMAN MD (04/26/2020 5:38 AM) [id number]
[2020-04-26] MEDS ORDERED: ASPIRIN CHEWABLE 81 MG TABLET. PO ONE (06:00)
[2020-04-26 06:29] VITALS: BP 102/53
== END 2020-04-26 07:25 | disposition short-term general hospital (02) ==
LOC: ER 04:19
DX: R05 Cough (principal); R53.1 Weakness; R77.8 Other specified abnormalities of plasma proteins; R06.02 Shortness of breath; E86.0 Dehydration; I11.9 Hypertensive heart disease without heart failure; I48.20 Chronic atrial fibrillation, unspecified; E78.00 Pure hypercholesterolemia, unspecified; F17.210 Nicotine dependence, cigarettes, uncomplicated; Z86.73 Personal history of transient ischemic attack (TIA), and cerebral infarction without residual deficits
CPT/HCPCS: 36415; 71045; 80053; 82550; 83615; 84484; 85025; 86140; 93005; 99285